=== PATIENT | male | born 1940 | race Caucasian/White ===

== ENCOUNTER 2016-05-29 14:07 | Outpatient (CLI) | payer MEDICARE, OTHER | END 2016-05-29 14:08 | disposition home or self-care (01) | DX: I48.91 Unspecified atrial fibrillation (principal) ==

== ENCOUNTER 2016-06-06 15:02 | Outpatient (CLI) | payer MEDICARE, OTHER | END 2016-06-06 23:59 | DX: I48.91 Unspecified atrial fibrillation (principal) ==

== ENCOUNTER 2016-06-24 14:31 | Outpatient (CLI) | payer MEDICARE, OTHER | END 2016-06-24 14:32 | disposition home or self-care (01) | DX: I48.91 Unspecified atrial fibrillation (principal) ==

== ENCOUNTER 2016-07-11 14:33 | Outpatient (CLI) | payer MEDICARE, OTHER | END 2016-07-11 14:34 | disposition home or self-care (01) | DX: I48.91 Unspecified atrial fibrillation (principal) ==

== ENCOUNTER 2016-08-05 14:45 | Outpatient (CLI) | payer MEDICARE, OTHER | END 2016-08-05 14:46 | disposition home or self-care (01) | DX: I48.91 Unspecified atrial fibrillation (principal) ==

== ENCOUNTER 2016-08-21 11:23 | Outpatient (CLI) | payer MEDICARE, OTHER | END 2016-08-21 11:24 | disposition home or self-care (01) | DX: I48.91 Unspecified atrial fibrillation (principal) ==

== ENCOUNTER 2016-09-12 14:13 | Outpatient (CLI) | payer MEDICARE, OTHER | END 2016-09-12 14:14 | disposition home or self-care (01) | DX: I48.91 Unspecified atrial fibrillation (principal) ==

== ENCOUNTER 2016-10-09 11:27 | Outpatient (CLI) | payer MEDICARE, OTHER | END 2016-10-09 11:28 | disposition home or self-care (01) | DX: I48.91 Unspecified atrial fibrillation (principal) ==

== ENCOUNTER 2016-11-28 14:49 | Outpatient (CLI) | payer MEDICARE, OTHER | END 2016-11-28 14:50 | disposition home or self-care (01) | LOC: LAB.F 14:49 | PROVIDERS: ATTEND Internal Medicine Cardiovascular Disease | DX: I48.91 Unspecified atrial fibrillation (principal) | CPT/HCPCS: 85610 ==

== ENCOUNTER 2016-12-18 15:23 | Emergency (ER) | payer MEDICARE, OTHER ==
[2016-12-18 15:42] VITALS: BP 156/88
[2016-12-18 16:43] LABS: BASOPHILS # (AUTO) 0.1 10^3/uL (0.0-0.1); BASOPHILS % (AUTO) 1.1 %; EOSINOPHILS # (AUTO) 0.2 10^3/uL (0.0-0.7); EOSINOPHILS % (AUTO) 2.4 %; HCT - HEMATOCRIT 43.3 % (42.0-52.0); HGB - HEMOGLOBIN 14.7 g/dL (14.0-18.0); LYMPHOCYTES # (AUTO) 1.7 10^3/uL (1.5-3.5); LYMPHOCYTES % (AUTO) 21.2 %; MEAN CORPUSCULAR HEMOGLOBIN 31.6 pg (27.0-31.0); MEAN CORPUSCULAR HGB CONC 33.9 g/dL (32.0-36.0); MEAN CORPUSCULAR VOLUME 93.2 fL (80.0-94.0); MEAN PLATELET VOLUME 8.4 fL (7.4-11.4); MONOCYTES # (AUTO) 0.6 10^3/uL (0.0-1.0); NEUTROPHILS # (AUTO) 5.4 10^3/uL (1.5-6.6); NEUTROPHILS % (AUTO) 68.3 %; NUCLEATED RED BLOOD CELLS AUTO 0.2 /100WBC; RED BLOOD COUNT 4.65 10^6/uL (4.70-6.10); RED CELL DISTRIBUTION WIDTH 13.9 % (12.0-15.0); UNCORRECTED WHITE BLOOD COUNT 7.9 x10^3/uL; WHITE BLOOD COUNT 7.9 x10^3/uL (4.8-10.8)
--- NOTE | 2016-12-18 17:13 | ED Physician Documentation ---
History of Present Illness - Stated complaint Stated Complaint: RT ARM LUMP/PX - Chief complaint Chief Complaint: Ext Problem - Additonal information Additional information: hx from pt 75 male on coumadin for a fib also has a PPM hx non hodgkins lymphoma and thrombocytopenia about a week ago he was lifting a piece of lumber and felt a pull in his R FA and then developed swelling to FA much os this swelling has subsided but he still has a firm cord just above AC medially and and firm approx 4 X 3 cm swelling to the ant mid to distal forearm and some bruising to posterior FA and tricep region he is worried about a blood clot Review of Systems Cardiac: denies: Chest pain / pressure Respiratory: denies: Dyspnea, Cough Musculoskeletal: reports: Extremity pain, Extremity swelling Endocrine: reports: Easy bruising / bleeding PD PAST MEDICAL HISTORY - Past Medical History Past Medical History: Yes Cardiovascular: Hypertension, High cholesterol, Atrial fibrillation - Past Surgical History Past Surgical History: Yes Cardiovascular: Pacemaker - Present Medications Home Medications: Ambulatory Orders Medication Instructions Recorded Confirmed Carvedilol 12.5 mg PO DAILY 12/18/16 12/18/16 Digoxin 125 mcg PO DAILY 12/18/16 12/18/16 Simvastatin 20 mg PO DAILY 12/18/16 12/18/16 Warfarin Sodium 5 mg PO DAILY 12/18/16 12/18/16 - Allergies Allergies/Adverse Reactions: Allergies Allergy/AdvReac Type Severity Reaction Status Date / Time No Known Drug Allergies Allergy Verified 12/18/16 15:40 - Social History Does the pt smoke?: No Smoking Status: Never smoker Does the pt drink ETOH?: Yes Does the pt have substance abuse?: No PD ED PE NORMAL - Vitals Vital signs reviewed: Yes - Cardiac Cardiac: RRR - Respiratory Respiratory: No respiratory distress - Extremities Extremities: Other (R arm, approx 3 firm linear tender swelling along the vein just proximal to medial AC, also a less tender more diffuse approx 4 X 3 cm smooth swelling to ant FA no pulsatiels, some aged bruising to posterior FA and tricep region, full ROM elbow and wrist, MSV intact) - Neuro Neuro: Alert and oriented X 3, No motor deficit, No sensory deficit Results - Vitals Vitals: Vital Signs - 24 hr 12/18/16 15:37 Temperature 36.7 C Heart Rate 61 Respiratory 17 Rate Blood Pressure 156/88 H O2 Saturation 96 Oxygen O2 Source Room air - Labs Labs: Laboratory Tests 12/18/16 12/18/16 16:29 16:33 WBC 7.9 RBC 4.65 L Hgb 14.7 Hct 43.3 MCV 93.2 MCH 31.6 H MCHC 33.9 RDW 13.9 Plt Count 156 MPV 8.4 Neut # 5.4 Lymph # 1.7 Young # 0.6 Eos # 0.2 Baso # 0.1 Absolute Nucleated RBC 0.01 Nucleated RBCs 0.2 Whole Blood INR 2.8 H - Rads (name of study) doppler Radiology: See rad report (no DVT) ST sono Radiology: See rad report (non vascular complex fluid collection with septations * X 1.8 X 1.2 cm could be a liquefying hematoma) Departure - Departure Disposition: 01 Home, Self Care Clinical Impression: Hematoma Condition: Good Comments: The ultrasound did not show a blood clot in the vein. It did show you have a collection of blood in the muscle called a hematoma - likely your tore some muscle when you were lifting and because you were on coumadin it bled internally. This will absorb on its own and does not need to be drained Recommend wear an CAYLA wrap to decrease the swelling and alternate applying ice and warm compresses Follow up with your PMD if not improving in a week Return sooner if worse And please get your blood pressure rechecked - it was high today
--- NOTE | 2016-12-18 18:28 | Ultrasound Preliminary Report ---
Exam: US Duplex Ext Veins Right IMPRESSION: No evidence for deep venous thrombosis. [facility] SITE ID: [id number]
--- NOTE | 2016-12-18 18:31 | Ultrasound Report ---
EXAM: RIGHT UPPER EXTREMITY VENOUS ULTRASOUND EXAM DATE: 12/18/2016 04:45 PM. CLINICAL HISTORY: Right upper extremity forearm injury, above AC and anterior forearm. COMPARISON: None. TECHNIQUE: Real-time sonographic vascular imaging was performed by the cable operator through the upper extremity utilizing both color-flow and Doppler spectral analysis. Multiple call center support representative static seble ges were saved for review. FINDINGS: Internal Jugular Vein (IJV): Normal. Subclavian Vein (SCV): Normal. Axillary Vein : Normal. Cephalic Vein (superficial vein): Normal. Basilic Vein (superficial vein): Normal. Brachial Vein: Normal. Visualized portions of the right radial and ulnar veins appear patent. IMPRESSION: No evidence for deep vein thrombosis. [facility] Referring Provider Line: [phone] SITE ID: [id number]
--- NOTE | 2016-12-18 18:36 | Ultrasound Preliminary Report ---
Exam: US Ext Limited Non Vascular IMPRESSION: Nonvascular complex fluid collection with internal septations in the medial right forear m at the palpable area, measuring 8 x 1.8 x 1.2 cm. This could represent a liquefying hematoma from a muscle tear. [facility] SITE ID: [id number]
--- NOTE | 2016-12-18 18:39 | Ultrasound Report ---
EXAM: RIGHT UPPER EXTREMITY ULTRASOUND - LIMITED, NONVASCULAR EXAM DATE: 12/18/2016 04:34 PM. CLINICAL HISTORY: Right upper extremity swelling. Palpable area in medial forearm. Patient states he pulled a muscle. COMPARISON: None. TECHNIQUE: Real-time scanning was performed with static images obtained. FINDINGS: Nonvascular complex fluid collection with internal septations in the medial forearm at the palpable area, measuring 8 x 1.8 x 1.2 cm. This could represent a liquefying hematoma from a muscle t ear. IMPRESSION: Nonvascular complex fluid collection with internal septations in the medial right forear m at the palpable area, measuring 8 x 1.8 x 1.2 cm. This could represent a liquefying hematoma from a muscle tear. [facility] Referring Provider Line: [phone] SITE ID: [id number]
== END 2016-12-18 19:08 | disposition home or self-care (01) ==
LOC: ED 15:23
DX: S50.11XA Contusion of right forearm, initial encounter (principal); I48.91 Unspecified atrial fibrillation; Z79.01 Long term (current) use of anticoagulants; I10 Essential (primary) hypertension; E78.00 Pure hypercholesterolemia, unspecified; Z85.72 Personal history of non-Hodgkin lymphomas; Z95.0 Presence of cardiac pacemaker; X50.9XXA Other and unspecified overexertion or strenuous movements or postures, initial encounter
CPT/HCPCS: 36415; 76882; 85025; 85610; 99283

== ENCOUNTER 2017-01-10 08:00 | Outpatient (CLI) | payer MEDICARE, OTHER ==
[2017-01-10 19:16] LABS: BASOPHILS # (AUTO) 0.1 10^3/uL (0.0-0.1); BASOPHILS % (AUTO) 1.1 %; EOSINOPHILS # (AUTO) 0.2 10^3/uL (0.0-0.7); EOSINOPHILS % (AUTO) 3.1 %; HCT - HEMATOCRIT 41.6 % (42.0-52.0); HGB - HEMOGLOBIN 13.8 g/dL (14.0-18.0); LYMPHOCYTES # (AUTO) 1.5 10^3/uL (1.5-3.5); LYMPHOCYTES % (AUTO) 21.2 %; MEAN CORPUSCULAR HEMOGLOBIN 31.2 pg (27.0-31.0); MEAN CORPUSCULAR HGB CONC 33.3 g/dL (32.0-36.0); MEAN CORPUSCULAR VOLUME 93.9 fL (80.0-94.0); MONOCYTES # (AUTO) 0.6 10^3/uL (0.0-1.0); MONOCYTES % (AUTO) 8.1 %; NEUTROPHILS # (AUTO) 4.8 10^3/uL (1.5-6.6); NEUTROPHILS % (AUTO) 66.5 %; RED BLOOD COUNT 4.43 10^6/uL (4.70-6.10); RED CELL DISTRIBUTION WIDTH 13.3 % (12.0-15.0); UNCORRECTED WHITE BLOOD COUNT 7.3 x10^3/uL; WHITE BLOOD COUNT 7.3 x10^3/uL (4.8-10.8)
== END 2017-01-10 08:01 | disposition home or self-care (01) ==
LOC: LAB.F 08:00
PROVIDERS: ATTEND Internal Medicine
DX: D69.42 Congenital and hereditary thrombocytopenia purpura (principal)
CPT/HCPCS: 36415; 85025

== ENCOUNTER 2017-01-17 14:05 | Outpatient (CLI) | payer MEDICARE, OTHER | END 2017-01-17 14:06 | disposition home or self-care (01) | LOC: LAB.F 14:05 | PROVIDERS: ATTEND Internal Medicine Cardiovascular Disease | DX: I48.91 Unspecified atrial fibrillation (principal) | CPT/HCPCS: 85610 ==

== ENCOUNTER 2017-02-13 13:48 | Outpatient (CLI) | payer MEDICARE, OTHER | END 2017-02-13 13:49 | disposition home or self-care (01) | LOC: LAB.F 13:48 | PROVIDERS: ATTEND Internal Medicine Cardiovascular Disease | DX: I48.91 Unspecified atrial fibrillation (principal) | CPT/HCPCS: 85610 ==

== ENCOUNTER 2017-03-26 14:22 | Outpatient (CLI) | payer MEDICARE, OTHER | END 2017-03-26 14:23 | disposition home or self-care (01) | LOC: LAB.F 14:22 | PROVIDERS: ATTEND Internal Medicine Cardiovascular Disease | DX: I48.91 Unspecified atrial fibrillation (principal) | CPT/HCPCS: 85610 ==

== ENCOUNTER 2017-04-07 13:45 | Outpatient (CLI) | payer MEDICARE, OTHER | END 2017-04-07 13:46 | disposition home or self-care (01) | LOC: LAB.F 13:45 | PROVIDERS: ATTEND Internal Medicine Cardiovascular Disease | DX: I48.91 Unspecified atrial fibrillation (principal) | CPT/HCPCS: 85610 ==

== ENCOUNTER 2017-05-08 13:47 | Outpatient (CLI) | payer MEDICARE, OTHER | END 2017-05-08 13:48 | disposition home or self-care (01) | LOC: LAB.F 13:47 | PROVIDERS: ATTEND Internal Medicine Cardiovascular Disease | DX: I48.91 Unspecified atrial fibrillation (principal) | CPT/HCPCS: 85610 ==

== ENCOUNTER 2017-05-20 15:04 | Outpatient (CLI) | payer MEDICARE, OTHER | END 2017-05-20 15:05 | disposition home or self-care (01) | LOC: LAB.F 15:04 | PROVIDERS: ATTEND Internal Medicine Cardiovascular Disease | DX: I48.91 Unspecified atrial fibrillation (principal) | CPT/HCPCS: 85610 ==

== ENCOUNTER 2017-06-12 14:26 | Outpatient (CLI) | payer MEDICARE, OTHER | END 2017-06-12 14:27 | disposition home or self-care (01) | LOC: LAB.F 14:26 | PROVIDERS: ATTEND Internal Medicine Cardiovascular Disease | DX: I48.91 Unspecified atrial fibrillation (principal) | CPT/HCPCS: 85610 ==

== ENCOUNTER 2017-07-16 11:21 | Outpatient (CLI) | payer MEDICARE, OTHER | END 2017-07-16 11:22 | disposition home or self-care (01) | LOC: LAB.F 11:21 | PROVIDERS: ATTEND Internal Medicine Cardiovascular Disease | DX: I48.91 Unspecified atrial fibrillation (principal) | CPT/HCPCS: 85610 ==

== ENCOUNTER 2017-08-18 14:10 | Outpatient (CLI) | payer MEDICARE, OTHER | END 2017-08-18 14:11 | disposition home or self-care (01) | LOC: LAB.F 14:10 | PROVIDERS: ATTEND Pharmacist | DX: I48.91 Unspecified atrial fibrillation (principal) | CPT/HCPCS: 85610 ==

== ENCOUNTER 2017-10-15 11:24 | Outpatient (CLI) | payer MEDICARE, OTHER | END 2017-10-15 11:25 | disposition home or self-care (01) | LOC: LAB.F 11:24 | PROVIDERS: ATTEND Pharmacist | DX: I48.91 Unspecified atrial fibrillation (principal) | CPT/HCPCS: 85610 ==

== ENCOUNTER 2017-12-17 14:52 | Outpatient (CLI) | payer MEDICARE, OTHER | END 2017-12-17 14:53 | disposition home or self-care (01) | LOC: LAB.F 14:52 | PROVIDERS: ATTEND Pharmacist | DX: I48.91 Unspecified atrial fibrillation (principal) | CPT/HCPCS: 85610 ==

== ENCOUNTER 2018-02-11 11:32 | Outpatient (CLI) | payer MEDICARE, OTHER | END 2018-02-11 11:33 | disposition home or self-care (01) | LOC: LAB.F 11:32 | PROVIDERS: ATTEND Pharmacist | DX: I48.91 Unspecified atrial fibrillation (principal) | CPT/HCPCS: 85610 ==

== ENCOUNTER 2018-02-25 11:38 | Outpatient (CLI) | payer MEDICARE, OTHER ==
--- NOTE | 2018-02-26 02:07 | XRAY Report ---
Reason: L SPINE PAIN PAIN IN HIP Procedure Date: 02/25/2018 Accession Number: [id number] / [id number] Procedure: XR - SI Joints CPT Code: FULL RESULT: EXAM: SACROILIAC JOINT RADIOGRAPHY. EXAM DATE: 02/25/2018 12:20 PM. CLINICAL HISTORY: L-spine pain in hip. COMPARISON: None. TECHNIQUE: 3 views. FINDINGS: Bones: Normal. No fracture or bone lesion. Joints: Bilateral right greater than left SI joint sclerosis. Degenerative disease noted in the mid and lower lumbar spine. Normal alignment of both hip joints. Soft Tissues: Normal. IMPRESSION: 1. No acute fracture or malalignment. 2. Mild bilateral SI joint sclerosis worse on the right than on the left. [facility]
--- NOTE | 2018-02-26 02:09 | XRAY Report ---
Reason: LUMBAR PAIN, PAIN IN RIGHT Procedure Date: 02/25/2018 Accession Number: [id number] / [id number] Procedure: XR - Hip w/Pelvis 2-3V RT CPT Code: FULL RESULT: EXAM: RIGHT HIP AND PELVIS RADIOGRAPHY EXAM DATE: 02/25/2018 12:20 PM. HISTORY: Lumbar pain, pain in right hip . COMPARISONS: None. TECHNIQUE: 1 view of the pelvis and 1 view of the hip. FINDINGS: Bones: Normal. No fracture or bone lesion. Joints: The bilateral hip, pubis symphysis, and sacroiliac joints are normally aligned. Mild bilateral SI joint sclerosis. Degenerative disease noted in the lower lumbar spine. Soft Tissues: Normal. No soft tissue swelling. IMPRESSION: 1. No fracture or malalignment. 2. Mild bilateral SI joint sclerosis better seen on SI joint radiograph. [facility]
--- NOTE | 2018-02-26 02:09 | XRAY Report ---
Reason: LUMBAR PAIN,PAIN IN HIP Procedure Date: 02/25/2018 Accession Number: [id number] / [id number] Procedure: XR - Lumbar Spine 2 View CPT Code: FULL RESULT: EXAM: LUMBOSACRAL SPINE RADIOGRAPHY. EXAM DATE: 02/25/2018 12:20 PM. CLINICAL HISTORY: Lumbar pain, pain in hip. COMPARISONS: None. TECHNIQUE: 3 views. FINDINGS: Alignment: Normal. No spondylolisthesis or scoliosis. Bones: Five [id number] lumbar vertebral bodies are present. Partially sacralized L5 level. No fractures or bone lesions. Disks: Multi level facet arthropathy is noted. Most severe disease is at L5-S1. Facets: Multilevel facet arthropathy most severe in the lower lumbar spine. Sacroiliac Joints: See separate SI joint radiograph report for description of bilateral SI joint sclerosis. Soft Tissues: Normal. The visualized bowel gas pattern is normal. IMPRESSION: 1. No acute fracture. 2. Multilevel degenerative disk and facet arthropathy. See above. [facility]
== END 2018-02-25 11:39 | disposition home or self-care (01) ==
LOC: DI 11:38
PROVIDERS: ATTEND Internal Medicine
DX: M51.36 Other intervertebral disc degeneration, lumbar region (principal); M51.37 Other intervertebral disc degeneration, lumbosacral region; M47.9 Spondylosis, unspecified; M25.80 Other specified joint disorders, unspecified joint
CPT/HCPCS: 72100; 72202

== ENCOUNTER 2018-03-12 11:50 | Outpatient (CLI) | payer MEDICARE, OTHER ==
--- NOTE | 2018-03-12 18:02 | CT Report ---
Reason: SACRAL LUMBAR SACRUM AND BILAT SI JOINT SCLEROSIS Procedure Date: 03/12/2018 Accession Number: [id number] / [id number] Procedure: CT - Lumbar Spine W/O CPT Code: FULL RESULT: EXAM: CT LUMBAR SPINE WITHOUT CONTRAST. EXAM DATE: 03/12/2018 12:12 PM. CLINICAL HISTORY: Sacral lumbar sacrum and bilateral sacroiliac joint sclerosis. COMPARISONS: Radiographs 02/25/2018. TECHNIQUE: Thin-section axial images were acquired of the lumbar spine from T11 to S1 without contrast. Post-processing: Coronal and sagittal reformats. Other: None. In accordance with CT protocol optimization, one or more of the following dose reduction techniques were utilized for this exam: automated exposure control, adjustment of mA and/or KV based on patient size, or use of iterative reconstructive technique. FINDINGS: Alignment: No scoliosis or spondylolisthesis. Bones: Five [id number] lumbar vertebral bodies are present. No fractures or bone lesions. Underlying congenital central canal stenosis with osseous diameter at the level of L3 measuring 14 mm. Disk Levels/Facets: Mild disk height loss and osteophytes at L3-L4 and L4-L5. Moderate disk height loss and osteophytes at L5-S1. T11-T12: Minimal disk osteophyte complex. Mild right and moderate left facet and ligamentum flavum hypertrophy. Mild central canal stenosis. Mild left neural foramen stenosis. T12-L1: Minimal disk osteophyte complex. Mild facet hypertrophy. No stenosis. L1-L2: Small disk osteophyte complex. Mild facet hypertrophy. Mild central canal stenosis. Mild right neural foramen stenosis. L2-L3: Small disk osteophyte complex with left paracentral protrusion with calcification. Mild facet hypertrophy. Mild to moderate central canal stenosis. Mild right neural foramen stenosis. L3-L4: Small to moderate disk osteophyte complex with foraminal components. Mild facet hypertrophy. Mild to moderate central canal stenosis. Narrowing at the bilateral lateral recesses. Mild bilateral neural foramen stenosis. L4-L5: Small to moderate disk osteophyte complex with bilateral foraminal components. Moderate facet hypertrophy. Moderate central canal stenosis. Bilateral lateral recess stenosis. Moderate right and mild left neural foramen stenosis. L5-S1: Small disk osteophyte complex. Moderate facet hypertrophy. Mild to moderate central canal stenosis. Left lateral recess stenosis with likely mass effect on the traversing left S1 nerve root by the hypertrophied left facet. Moderate to severe right and mild left neural foramen stenosis. Musculature: Mild fatty atrophy in the posterior paraspinous musculature. Limited evaluation for edema on CT. Other: Mild to moderate atherosclerosis in the abdominal aorta and bilateral iliac arteries. Fusiform aneurysmal dilatation of the celiac artery measuring 2.0 cm in transverse dimension 2 cm distal to the origin. Fusiform aneurysmal dilatation of the superior mesenteric artery measuring 1.2 cm transverse dimension 3.5 cm from the origin. Mild aneurysmal dilatation of the left common iliac artery measuring 2.5 cm transverse. Moderate degenerative changes at the sacroiliac joints. IMPRESSION: 1. Underlying congenital central canal stenosis. 2. Mild to moderate degenerative disk and facet changes. 3. Varying degrees of central canal stenosis, moderate at L4-L5. Mild to moderate central canal stenosis at L2-L3, L3-L4, and L5-S1. 4. Hypertrophied left facet at L5-S1 likely results in mass effect on the traversing left S1 nerve root. 5. Varying degrees of neural foramen stenosis, moderate to severe at L5-S1 on the right. Moderate stenosis at L4-L5 on the right. 6. Mild to moderate atherosclerosis. 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 Recommend correlate with any prior imaging of the CT abdomen and pelvis to evaluate stability. CT angiogram could be performed for further characterization. [facility]
--- NOTE | 2018-03-12 18:02 | CT Report ---
Reason: SACRAL LUMBAR SACRUM AND BILAT SI JOINT SCLEROSIS Procedure Date: 03/12/2018 Accession Number: [id number] / [id number] Procedure: CT - Pelvis W/O CPT Code: FULL RESULT: EXAM: CT BONY PELVIS WITHOUT CONTRAST EXAM DATE: 03/12/2018 12:13 PM. CLINICAL HISTORY: Sacral lumbar sacrum and bilateral SI joint sclerosis. COMPARISON: Hip and pelvis radiographs 02/25/2018. TECHNIQUE: Thin-section axial images were acquired of the pelvis without contrast. Post-processing: Coronal and sagittal reformats. Other: None. In accordance with CT protocol optimization, one or more of the following dose reduction techniques were utilized for this exam: automated exposure control, adjustment of mA and/or KV based on patient size, or use of iterative reconstructive technique. FINDINGS: Bones: No fracture. Benign bone islands right acetabulum and femoral head. Lower Lumbar Spine: Mild to moderate degenerative disk and moderate degenerative facet changes partially visualized. Please see dedicated CT lumbar spine performed on the same day for further details. Sacroiliac Joints: Moderate degenerative changes bilaterally. No gross erosive changes or widening. Symphysis Pubis: Mild degenerative changes. Right Hip: Mild degenerative changes. No joint effusion. Left Hip: Mild degenerative changes. No joint effusion. Musculature: Mild to moderate fatty atrophy in the bilateral gluteus minimus and medius muscles. Limited evaluation for muscle edema on CT. Enthesopathic changes at the bilateral hamstring origins. Pelvic Cavity: Mild to moderate atherosclerosis in the abdominal aorta and bilateral iliac arteries. Aneurysmal dilatation of the left common iliac artery measuring up to 2.5 cm. No free fluid or enlarged lymph node. Prostate calcifications. Small fat-containing left inguinal hernia. Other: Subcutaneous soft tissues unremarkable. IMPRESSION: 1. Moderate sacroiliac degenerative changes. 2. Degenerative disk and facet changes partially visualized lower lumbar spine. Please see dedicated CT lumbar spine performed on the same day for further details. 3. Mild degenerative changes at the hips and pubic symphysis. 4. Mild to moderate fatty atrophy in the bilateral gluteus minimus and medius muscles. [facility]
== END 2018-03-12 11:51 | disposition home or self-care (01) ==
LOC: DI 11:50
PROVIDERS: ATTEND Internal Medicine
DX: M51.36 Other intervertebral disc degeneration, lumbar region (principal); M51.37 Other intervertebral disc degeneration, lumbosacral region; M47.9 Spondylosis, unspecified; M48.061 Spinal stenosis, lumbar region without neurogenic claudication; M48.07 Spinal stenosis, lumbosacral region; M16.0 Bilateral primary osteoarthritis of hip; M47.898 Other spondylosis, sacral and sacrococcygeal region; M62.552 Muscle wasting and atrophy, not elsewhere classified, left thigh; M62.551 Muscle wasting and atrophy, not elsewhere classified, right thigh
CPT/HCPCS: 72131; 72192

== ENCOUNTER 2018-04-09 12:00 | Outpatient (CLI) | payer MEDICARE, OTHER | END 2018-04-09 12:01 | disposition home or self-care (01) | LOC: LAB 12:00 | PROVIDERS: ATTEND Pharmacist | DX: I48.91 Unspecified atrial fibrillation (principal) | CPT/HCPCS: 85610 ==

== ENCOUNTER 2018-04-09 13:30 | Outpatient (CLI) | payer MEDICARE, OTHER | END 2018-04-09 13:31 | disposition home or self-care (01) | LOC: LAB 13:30 | PROVIDERS: ATTEND Internal Medicine | DX: I10 Essential (primary) hypertension (principal); I48.91 Unspecified atrial fibrillation | CPT/HCPCS: 36415; 82565; 85610 ==

== ENCOUNTER 2018-04-10 12:57 | Outpatient (CLI) | payer MEDICARE, OTHER ==
[2018-04-10] MEDS ORDERED: IOPAMIDOL-300 100 ML VIAL ONE (13:06)
[2018-04-10] MEDS ORDERED: IOPAMIDOL-300 100 ML VIAL IVP ONE (14:07)
--- NOTE | 2018-04-10 15:55 | CT Report ---
Reason: ANEURYSM OF OTHER SPECIFIED ARTERIES Procedure Date: 04/10/2018 Accession Number: [id number] / [id number] Procedure: CT - Abdomen Angio CPT Code: FULL RESULT: EXAM: CT ANGIOGRAM ABDOMEN AND PELVIS WITH CONTRAST EXAM DATE: 04/10/2018 02:01 PM. CLINICAL HISTORY: Aneurysm of other specified arteries. COMPARISONS: None. TECHNIQUE: Routine helical CT angiogram imaging was performed through the abdomen and pelvis in the arterial phase. IV contrast: Isovue 300 100 mL. Enteric contrast: No. Reconstructions: Coronal, sagittal, and 3D MIP reconstructions. In accordance with CT protocol optimization, one or more of the following dose reduction techniques were utilized for this exam: automated exposure control, adjustment of mA and/or KV based on patient size, or use of iterative reconstructive technique. FINDINGS: Vasculature: Fusiform dilation of the celiac trunk involving origins of the common hepatic artery, gastroduodenal artery and with continuation to the proximal splenic artery for a total length of 3 cm with a maximum caliber of 1.8 cm. Conventional branching pattern of celiac trunk. Mild atherosclerosis of the abdominal aorta without aneurysm. Ectatic partially visualized common iliac arteries, left is frankly aneurysmal to 2.2 cm and atherosclerotic. Normal bilateral single renal arteries. Normal SMA. Lung Bases: Normal. Abdominal Solid Organs: Normal. The liver, spleen, pancreas, adrenal glands, gallbladder and kidneys are normal in size and demonstrate no masses or abnormal enhancement with the exception of a left lobe of the liver hepatic hypodensity which is too small to characterize but demonstrates features suggestive of the possibility of hemangioma. Peritoneal Cavity: Normal. No free fluid, free air, or acute inflammatory process. Pelvic Organs: Normal. The bladder and visualized pelvic organs are within normal limits. Bones: No significant abnormality. Other: There is a periumbilical fat-containing hernia with centrally trapped fluid, 2 cm of diastases. 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 No evidence of associated malperfusion, mycotic features or dissection. Normal SMA. Incidental findings of uncharacterized hepatic hypodensity and hernia as described. [facility]
== END 2018-04-10 12:58 | disposition home or self-care (01) ==
LOC: DI 12:57
PROVIDERS: ATTEND Internal Medicine
DX: I72.8 Aneurysm of other specified arteries (principal); I10 Essential (primary) hypertension
CPT/HCPCS: 74175; Q9967

== ENCOUNTER 2018-06-18 13:20 | Outpatient (CLI) | payer MEDICARE, OTHER | END 2018-06-18 13:21 | disposition home or self-care (01) | LOC: LAB.F 13:20 | PROVIDERS: ATTEND Pharmacist | DX: I48.91 Unspecified atrial fibrillation (principal) | CPT/HCPCS: 85610 ==